=== PATIENT | male | born 1980 | race Caucasian/White ===

== ENCOUNTER 2023-06-13 17:39 | Emergency (ER) | payer OTHER, SELFPAY ==
[2023-06-13 17:47] VITALS: BP 124/75; PULSE 84; RESP 18; TEMP 36.4; O2SAT 98
--- NOTE | 2023-06-13 17:52 | ED.LOWEXIN ---
HPI - Extremity Injury (Lower) General Chief Complaint: Extremity Injury, Lower Stated Complaint: Left Knee Pain Source: patient and RN notes reviewed History of Present Illness HPI Narrative: 42 yo M Presents to urgent care with complaints of left knee pain. Pt states he first noticed some irritation and soreness last evening and Sunday. Pt states today the pain worsened and he is unable to actively flex and extend his left knee without pain. 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 Denies any known injury but does admit to doing more than his normal. Pt states he has been taking ibuprofen without relief. Denies any fevers, chills, chest pain, or SOB. Pt states he was dx with gout about 15 years ago and used to be on medication for it but hasn't taken it in years. Related Data Home Medications Medication Instructions Recorded Confirmed atorvastatin 40 mg tablet 40 mg PO DAILY 06/13/23 06/13/23 citalopram 40 mg tablet 40 mg PO DAILY 06/13/23 06/13/23 empagliflozin 25 mg tablet 25 mg PO DAILY 06/13/23 06/13/23 (Jardiance) glimepiride 4 mg tablet 4 mg PO DAILY 06/13/23 06/13/23 insulin glargine 100 unit/mL (3 20 unit subcut QAM 06/13/23 06/13/23 mL) subcutaneous pen (Lantus Solostar U-100 Insulin) lisinopril 40 mg tablet 40 mg PO DAILY 06/13/23 06/13/23 metformin 1,000 mg tablet 1,000 mg PO BID 06/13/23 06/13/23 metoprolol succinate 100 mg 100 mg PO DAILY 06/13/23 06/13/23 tablet,extended release 24 hr Allergies Allergy/AdvReac Type Severity Reaction Status Date / Time No Known Allergies Allergy Verified 06/13/23 18:01 Review of Systems Review of Systems: CONSTITUTIONAL: Denies fever, chills, or sweats. EYES: Denies visual changes, redness, or discharge. ENT: Denies otalgia and sore throat CARDIOVASCULAR: Denies chest pain, palpitations, or edema. RESPIRATORY: Denies cough or dyspnea. GASTROINTESTINAL: Denies abdominal pain, nausea, vomiting, or diarrhea. GENITOURINARY: Denies dysuria or hematuria. SKIN: Denies rash or itching. MUSCULOSKELETAL: Left knee pain NEUROLOGIC: Denies headache, numbness, or weakness. Pertinent positives per HPI. PMFSH Comments At the time of my signature, I reviewed and agree with the nursing past medical, surgical, social, and family history. There is no relevant family history pertinent to the patient complaint. Exam Narrative: GENERAL: This is a well-nourished, well-developed patient, in no apparent distress. HEAD: normocephalic, atraumatic. EYES: Sclera clear/white. Vision is grossly intact. EARS: External ears normal, auditory canals clear and without drainage. Hearing grossly intact. NOSE: External nose normal with no obvious nasal discharge, nares without redness, no rhinorrhea. THROAT: Mucous membranes moist, posterior pharynx clear. NECK: Neck supple, non-tender without lymphadenopathy, masses or thyromegaly. CARDIOVASCULAR: Regular rate and rhythm without murmurs, gallops, or rubs. RESPIRATORY: Clear to auscultation. Breath sounds equal bilaterally. No wheezes, rales, or rhonchi. SKIN: warm, intact with no suspicious lesions or rash, good texture and turgor. NEURO: awake, alert, and oriented to person, place and time. There were no obvious focal neurologic abnormalities. EXTREMITIES: Left anterior knee is tender to the slightest touch, mildly erythremic, mildly edematous, and warm. Pt able to flex and extend the left knee fully only with passive range of motion. Course Course Level of Care: Express Care Visit Vital Signs Vital signs: Vital Signs Temperature 97.6 F 06/13/23 17:47 Pulse Rate 84 06/13/23 17:47 Respiratory Rate 18 06/13/23 17:47 Blood Pressure 124/75 06/13/23 17:47 Pulse Oximetry 98 06/13/23 17:47 Oxygen Delivery Room Air 06/13/23 17:47 Temperature 97.6 F 06/13/23 17:47 Pulse Rate 84 06/13/23 17:47 Respiratory Rate 18 06/13/23 17:47 Bloo
[2023-06-13] MEDS: methylPREDNISolone SOD SUCC 125 MG VIAL IM (18:22)
== END 2023-06-13 18:42 | disposition home or self-care (01) ==
PROVIDERS: Emergency Provider Nurse Practitioner Family; PCP Nurse Practitioner Family
DX: M10.9 Gout, unspecified (principal); E78.00 Pure hypercholesterolemia, unspecified; I10 Essential (primary) hypertension; E11.9 Type 2 diabetes mellitus without complications; Z79.84 Long term (current) use of oral hypoglycemic drugs; Z79.4 Long term (current) use of insulin; F41.9 Anxiety disorder, unspecified; F32.A Depression, unspecified
CPT/HCPCS: 96372; 99213; G0463; J2930

== ENCOUNTER 2023-09-28 10:50 | Emergency (ER) | payer OTHER, SELFPAY ==
[2023-09-28 11:00] VITALS: BP 158/91; PULSE 77; RESP 20; TEMP 36.6; O2SAT 95
--- NOTE | 2023-09-28 11:33 | ED.URI ---
HPI - URI/Sore Throat General Chief Complaint: Upper Respiratory Infection Stated Complaint: cough / congestion Time Seen by Provider: 09/28/23 11:30 Source: patient and RN notes reviewed Mode of arrival: ambulatory Limitations: no limitations History of Present Illness HPI Narrative: 43-year-old male presents with concern for 2 week history of cough, chest congestion, shortness of breath, nasal congestion, rhinorrhea. Reports he has tried multiple over the counter medications without relief. Reports that started the symptoms he had fever, aches, chills which have resolved. MD elicited complaint: cough and nasal congestion Related Data Home Medications Medication Instructions Recorded Confirmed atorvastatin 40 mg tablet 40 mg PO DAILY 06/13/23 09/28/23 citalopram 40 mg tablet 40 mg PO DAILY 06/13/23 09/28/23 empagliflozin 25 mg tablet 25 mg PO DAILY 06/13/23 09/28/23 (Jardiance) glimepiride 4 mg tablet 4 mg PO DAILY 06/13/23 09/28/23 insulin glargine 100 unit/mL (3 20 unit subcut QAM 06/13/23 09/28/23 mL) subcutaneous pen (Lantus Solostar U-100 Insulin) lisinopril 40 mg tablet 40 mg PO DAILY 06/13/23 09/28/23 metformin 1,000 mg tablet 1,000 mg PO BID 06/13/23 09/28/23 metoprolol succinate 100 mg See Rx Instructions .Route .COMPLEX 06/13/23 09/28/23 tablet,extended release 24 hr Allergies Allergy/AdvReac Type Severity Reaction Status Date / Time No Known Allergies Allergy Verified 09/28/23 11:04 Review of Systems Review of Systems: CONSTITUTIONAL: Denies malaise, chills, sweats, or fever. EYES: Denies visual changes, redness, or discharge. ENT: Reports rhinorrhea, congestion, sinus pain. Denies otalgia and sore throat. CARDIOVASCULAR: Denies chest pain, palpitations, or edema. RESPIRATORY: Reports cough, Denies dyspnea. GASTROINTESTINAL: Denies abdominal pain, nausea, vomiting, diarrhea SKIN: Denies rash or itching. MUSCULOSKELETAL: Denies myalgia. NEUROLOGIC: Denies headache. All systems reviewed & are unremarkable except as noted in HPI and below PMFSH Comments At time of signature, agree with nursing past medical, surgical, social and family history. There is no relevant family history pertinent to the presenting complaint Exam Narrative: GENERAL: Well-appearing, well-nourished, and in no acute distress. HEAD: Normocephalic EYES: PERRLA, conjunctivae clear ENT: Nares clear, turbinates edematous and erythematous. Mucous membranes moist. TM pearly martin with dull light reflex bilaterally; no tragal tenderness. Oropharynx not erythematous without lesions. Tonsils not enlarged and without exudate, no drooling, no hoarseness, no trismus, uvula midline. NECK: Supple. No lymphadenopathy CHEST: Scattered expiratory wheeze, otherwise clear to auscultation, breath sounds equal. No rhonchi, rales, or stridor. No respiratory distress, speaks in full sentences. HEART: Regular rate and rhythm. No murmur heard. SKIN: Warm, dry, no rash. NEURO: Alert and oriented x3. PSYCH: Normal mood and affect Course Course Emergency Course: Patient is aware of diagnosis, understands and agrees to treatment plan. Anticipatory guidance given. Patient agrees to follow-up as directed and is aware of reasons to seek care at the emergency department. Portions of this record may have been created with voice recognition software Level of Care: Express Care Visit Vital Signs Vital signs: Vital Signs Temperature 97.9 F 09/28/23 11:00 Pulse Rate 77 09/28/23 11:00 Respiratory Rate 20 09/28/23 11:00 Blood Pressure 158/91 H 09/28/23 11:00 Pulse Oximetry 95 09/28/23 11:00 Oxygen Delivery Room Air 09/28/23 11:00 Temperature 97.9 F 09/28/23 11:00 Pulse Rate 77 09/28/23 11:00 Respiratory Rate 20 09/28/23 11:00 Blood Pressure 158/91 H 09/28/23 11:00 Pulse Oximetry 95 09/28/23 11:00 Oxygen Delivery Room Air 09/28/23 11:00 Reviewed. MDM - URI/Sore Throat MDM Narrative Medical
== END 2023-09-28 11:40 | disposition home or self-care (01) ==
PROVIDERS: Emergency Provider Nurse Practitioner; PCP Nurse Practitioner Family
DX: J32.9 Chronic sinusitis, unspecified (principal); J40 Bronchitis, not specified as acute or chronic; E78.00 Pure hypercholesterolemia, unspecified; I10 Essential (primary) hypertension; E11.9 Type 2 diabetes mellitus without complications; Z79.84 Long term (current) use of oral hypoglycemic drugs; F41.9 Anxiety disorder, unspecified; F32.A Depression, unspecified
CPT/HCPCS: 99213; G0463

== ENCOUNTER 2024-07-16 08:55 | Emergency (ER) | payer OTHER, SELFPAY ==
[2024-07-16 09:02] VITALS: BP 101/75; PULSE 82; RESP 16; TEMP 36.3; O2SAT 99
--- NOTE | 2024-07-16 09:24 | ED.GENADULT ---
HPI - General Adult General Chief complaint: Skin/Abscess/Foreign Body Stated complaint: Left Foot Pain Time Seen by Provider: 07/16/24 09:24 Source: patient Mode of arrival: ambulatory Limitations: no limitations History of Present Illness HPI narrative: 43-year-old male presents with complaint left foot pain for the past several weeks. States pain has been intermittent. Denies injury. The last 3-4 days pain is constant, burning and aching. History of gout. Patient feels that pain is related to gout. Use to take DANA paranoid all but was taken off of it several years ago. In the past has taken steroids and colchicine to treat his gout pain. All systems reviewed and negative except as noted above. Related Data Home Medications Medication Instructions Recorded Confirmed atorvastatin 40 mg tablet 40 mg PO DAILY 06/13/23 09/28/23 citalopram 40 mg tablet 40 mg PO DAILY 06/13/23 09/28/23 empagliflozin 25 mg tablet 25 mg PO DAILY 06/13/23 09/28/23 (Jardiance) glimepiride 4 mg tablet 4 mg PO DAILY 06/13/23 09/28/23 insulin glargine 100 unit/mL (3 20 unit subcut QAM 06/13/23 09/28/23 mL) subcutaneous pen (Lantus Solostar U-100 Insulin) lisinopril 40 mg tablet 40 mg PO DAILY 06/13/23 09/28/23 metformin 1,000 mg tablet 1,000 mg PO BID 06/13/23 09/28/23 metoprolol succinate 100 mg See Rx Instructions .Route .COMPLEX 06/13/23 09/28/23 tablet,extended release 24 hr Allergies Allergy/AdvReac Type Severity Reaction Status Date / Time No Known Allergies Allergy Verified 09/28/23 11:04 Review of Systems Review of Systems: CONSTITUTIONAL: Denies fever, chills, or sweats. EYES: Denies visual changes, redness, or discharge. ENT: Denies rhinorrhea, congestion, sore throat, or otalgia. CARDIOVASCULAR: Denies chest pain, palpitations, or edema. RESPIRATORY: Denies cough or dyspnea. GASTROINTESTINAL: Denies abdominal pain, nausea, vomiting, or diarrhea. GENITOURINARY: Denies dysuria or hematuria. SKIN: Denies rash or itching. MUSCULOSKELETAL: Reports left foot pain NEUROLOGIC: Denies headache, numbness, or weakness. PSYCHIATRIC: Denies anxiety or depression. All other systems reviewed are negative, except as documented in HPI. PMFSH Comments At time of signature, agree with nursing past medical, surgical, social and family history. There is no relevant family history pertinent to the presenting complaint. Exam Narrative: GENERAL: This is a well-nourished, well-developed patient, in no apparent distress. HEAD: normocephalic, atraumatic. EYES: PERRL. Sclera clear/white. Vision is grossly intact. EARS: External ears normal NOSE: External nose normal NECK: Neck supple, non-tender without lymphadenopathy, masses or thyromegaly. CARDIOVASCULAR: Regular rate and rhythm without murmurs, gallops, or rubs. RESPIRATORY: Clear to auscultation. Breath sounds equal bilaterally. No wheezes, rales, or rhonchi. SKIN: warm, Dry, intact with no suspicious lesions or rash, good texture and turgor. NEURO: awake, alert, and oriented to person, place and time. There were no obvious focal neurologic abnormalities. EXTREMITIES: tenderness to lateral, dorsal aspect left foot with mild swelling, warm to touch. No significant erythema. Course Course Level of Care: Express Care Visit Vital Signs Vital signs: Vital Signs Temperature 36.3 C L 07/16/24 09:02 Pulse Rate 82 07/16/24 09:02 Respiratory Rate 16 07/16/24 09:02 Blood Pressure 101/75 07/16/24 09:02 Pulse Oximetry 99 07/16/24 09:02 Oxygen Delivery Room Air 07/16/24 09:02 Temperature 36.3 C L 07/16/24 09:02 Pulse Rate 82 07/16/24 09:02 Respiratory Rate 16 07/16/24 09:02 Blood Pressure 101/75 07/16/24 09:02 Pulse Oximetry 99 07/16/24 09:02 Oxygen Delivery Room Air 07/16/24 09:02 Reviewed Medical Decision Making MDM Narrative Medical decision making narrative: explained to patient that we are unable to check
== END 2024-07-16 09:36 | disposition home or self-care (01) ==
PROVIDERS: Emergency Provider Nurse Practitioner Family; PCP Nurse Practitioner Family
DX: M10.9 Gout, unspecified (principal); I10 Essential (primary) hypertension; E11.9 Type 2 diabetes mellitus without complications; Z79.4 Long term (current) use of insulin; Z79.84 Long term (current) use of oral hypoglycemic drugs; E78.00 Pure hypercholesterolemia, unspecified; F41.9 Anxiety disorder, unspecified; F32.A Depression, unspecified
CPT/HCPCS: 99213; G0463